=== PATIENT | male | born 1980 | race Two or more races ===

== ENCOUNTER 2017-05-16 23:12 | Emergency (ER) | payer SELFPAY ==
[~2017-05-16] VITALS: Ht 180.3 cm; Wt 81.6 kg
[2017-05-16 23:48] VITALS: BP 139/76
== END 2017-05-17 05:09 | disposition left against medical advice (07) ==
LOC: ER 23:18
DX: R51 Headache (principal); Z53.21 Procedure and treatment not carried out due to patient leaving prior to being seen by health care provider; Y09 Assault by unspecified means; Y93.89 Activity, other specified; Y99.8 Other external cause status; Y92.89 Other specified places as the place of occurrence of the external cause